=== PATIENT | male | born 1960 | race Caucasian/White ===

== ENCOUNTER 2017-02-08 09:00 | Day surgery (SDC) | payer OTHER ==
[2017-02-08] MEDS ORDERED: LACTATED RINGERS 1,000 ML IV ONE ×3 (09:05→13:47)
[2017-02-08] MEDS ORDERED: MIDAZOLAM 2 MG/2 ML VIAL IVP ONE (13:40)
[2017-02-08] MEDS ORDERED: KETOROLAC 30 MG/ML VIAL IVP ONE (13:40)
[2017-02-08] MEDS ORDERED: PROPOFOL 200 MG/20 ML VIAL IVP ONE (13:40)
[2017-02-08] MEDS ORDERED: ONDANSETRON 4 MG/2 ML VIAL IVP ONE (13:40)
[2017-02-08] MEDS ORDERED: ROCURONIUM 50 MG/5 ML VIAL IVP ONE (13:40)
[2017-02-08] MEDS ORDERED: LIDOCAINE-MPF 2% 5 ML VIAL IM ONE (13:40)
[2017-02-08] MEDS ORDERED: DEXAMETHASONE 4 MG/ML VIAL IVP ONE (13:40)
[2017-02-08] MEDS ORDERED: fentaNYL 250 MCG/5 ML VIAL IVP ONE (13:40)
[2017-02-08] MEDS ORDERED: ACETAMINOPHEN 1,000 MG/100 ML VIAL IV ONE (13:40)
[2017-02-08] MEDS ORDERED: SUCCINYLCHOLINE 200 MG/10 ML VIAL IVP ONE (13:40)
[2017-02-08] MEDS ORDERED: BUPIVACAINE 0.5% PF 10 ML VIAL IM ONE (13:47)
[2017-02-08] MEDS ORDERED: LIDOCAINE 1%-EPI 1:100000 20 ML MDV SUBQ ONE (13:48)
[2017-02-08] MEDS ORDERED: MEPERIDINE 50 MG/ML SYRINGE ONE (16:51)
[2017-02-08] MEDS: HYDROmorphone 1 MG/ML SYRINGE ONE ×3 (17:17→17:30)
[2017-02-08] MEDS ORDERED: fentaNYL 100 MCG/2 ML VIAL ONE (17:39)
[2017-02-08] MEDS ORDERED: oxyCOD/ACETAMIN 5 MG/325 MG TABLET PO ONE (18:16)
== END 2017-02-08 09:01 | disposition home or self-care (01) ==
PROC: 0YUA0JZ Supplement Bilateral Inguinal Region with Synthetic Substitute, Open Approach (ICD-10-PCS; 2017-02-08)
PROC: 0WUF0JZ Supplement Abdominal Wall with Synthetic Substitute, Open Approach (ICD-10-PCS; principal; 2017-02-08 10:00)
DX: K42.9 Umbilical hernia without obstruction or gangrene (principal); K40.91 Unilateral inguinal hernia, without obstruction or gangrene, recurrent; K40.90 Unilateral inguinal hernia, without obstruction or gangrene, not specified as recurrent; Z87.891 Personal history of nicotine dependence; Z80.3 Family history of malignant neoplasm of breast; Z80.51 Family history of malignant neoplasm of kidney; Z80.9 Family history of malignant neoplasm, unspecified
CPT/HCPCS: 49505; 49520; 49585; 88304; A9270; C1781; J0131; J1170; J3010; J7120

== ENCOUNTER 2021-08-22 13:31 | Emergency (ER) | payer OTHER ==
--- NOTE | 2021-08-22 14:10 | ED Physician Documentation ---
History of Present Illness - Stated complaint Stated Complaint: SOA,CONGESTION,WEAKNESS - Chief complaint Chief Complaint: General - History obtained from History obtained from: Patient - Additonal information Additional information: 61-year-old gentleman with history of irritable bowel syndrome and chronic issues with the left ankle from prior trauma but otherwise very healthy presents with 5 days of shortness of breath with exertion, feeling like his head is congested and he is feeling off balance. It was associated with "a feeling" in his chest last night that lasted about a minute but was not painful and he could not other describe saucedo describe it. He has some joint aches and generalized weakness with this. Had diarrhea on and off with an episode of bowel incontinence 2 days ago. No current abdominal pain, fevers, chills, pedal edema. Review of Systems Ten Systems: 10 systems reviewed and negative Constitutional: reports: Myalgias, Fatigue. denies: Fever, Chills, Weight Loss, Sweats Cardiac: denies: Chest pain / pressure, Palpitations, Pedal edema, Calf pain Respiratory: reports: Dyspnea. denies: Cough PD PAST MEDICAL HISTORY - Past Medical History Cardiovascular: None Respiratory: Sleep apnea Endocrine/Autoimmune: None GI: None : Benign prostate hypertrophy HEENT: None Psych: None Musculoskeletal: None Derm: None - Past Surgical History General: Colonoscopy, Other Ortho: Other - Present Medications Home Medications: Ambulatory Orders Medication Instructions Recorded Confirmed Tamsulosin [Flomax] 0.4 mg PO DAILY 02/07/17 02/07/17 - Allergies Allergies/Adverse Reactions: Allergies Allergy/AdvReac Type Severity Reaction Status Date / Time No Known Drug Allergies Allergy Verified 08/22/21 13:55 PD ED PE NORMAL - Vitals Vital signs reviewed: Yes - General General: Alert and oriented X 3, No acute distress - HEENT HEENT: PERRL, EOMI - Neck Neck: Supple, no meningeal sign, No bony TTP - Cardiac Cardiac: RRR, No murmur - Respiratory Respiratory: No respiratory distress, Clear bilaterally - Abdomen Abdomen: Non tender - Back Back: No CVA TTP, No spinal TTP - Derm Derm: Normal color, Warm and dry - Extremities Extremities: No edema, No calf tenderness / cord - Neuro Neuro: Alert and oriented X 3, No motor deficit, No sensory deficit, Normal speech, Other (Normal [id number] testing) Eye Opening: Spontaneous Motor: Obeys Commands Verbal: Oriented GCS Score: 15 Results - Vitals Vitals: Vital Signs - 24 hr 08/22/21 08/22/21 13:39 13:56 Temperature 36.5 C 36.5 C Heart Rate 60 60 Respiratory 15 15 Rate Blood Pressure 135/85 H 135/85 H O2 Saturation 99 99 Oxygen O2 Source Room air - EKG (time done) 1421 Rate: Rate (enter#) (60) Rhythm: NSR (w pvc) Landis: Normal Intervals: Other (IVCD) Ischemia: Normal ST segments - Labs Labs: Laboratory Tests 08/22/21 08/22/21 08/22/21 14:35 14:35 14:35 WBC 7.2 RBC 4.80 Hgb 14.8 Hct 43.0 MCV 89.6 MCH 30.8 MCHC 34.4 RDW 12.5 Plt Count 229 MPV 8.6 Neut # (Auto) 4.2 Lymph # (Auto) 1.9 [place] # (Auto) 0.7 Eos # (Auto) 0.3 Baso # (Auto) 0.1 Absolute Nucleated RBC 0.00 Nucleated RBC % 0.0 Sodium 139 Potassium 4.0 Chloride 107 Carbon Dioxide 22 Anion Gap 10.0 BUN 23 H Creatinine 0.8 Estimated GFR (MDRD) 99 Glucose 93 Calcium 9.6 Total Bilirubin 0.7 AST 36 ALT 74 H Alkaline Phosphatase 76 Troponin I High Sens 5.2 B-Natriuretic Peptide Total Protein 6.9 Albumin 4.4 Globulin 2.5 Albumin/Globulin Ratio 1.8 Lipase 33 08/22/21 14:35 WBC RBC Hgb Hct MCV MCH MCHC RDW Plt Count MPV Neut # (Auto) Lymph # (Auto) [place] # (Auto) Eos # (Auto) Baso # (Auto) Absolute Nucleated RBC Nucleated RBC % Sodium Potassium Chloride Carbon Dioxide Anion Gap BUN Creatinine Estimated GFR (MDRD) Glucose Calcium Total Bilirubin AST ALT Alkaline Phosphatase Troponin I High Sens B-Natriuretic Peptide 126 H Total Protein Albumin Globulin Albumin/Globulin Ratio Lipase PD MEDICAL DECISION MAKING - ED course ED course: 61-year-old gentleman with nonspecific symptoms. The most concerning which is exertional dyspnea. Nothing to suggest active ischemic heart disease. Chest x- ray negative save some atelectatic change. His symptoms do not point to Covid per se but he has a specific worry and requests Covid testing which will be done prior to discharge. Discussed need for follow-up and potentially stress testing. Departure - Departure Disposition: 01 Home, Self Care Clinical Impression: Dizziness Dyspnea Qualifiers: Dyspnea type: dyspnea on exertion Qualified Code(s): R06.00 - Dyspnea, unspecified Condition: Good Record reviewed to determine appropriate education?: Yes Instructions: ED Dyspnea Shortness of Breath Comments: No clear cause for your symptoms today, that said your blood work does not show any evidence of active issues or heart disease. You should follow-up with your doctor and I would recommend stress testing. Return for new or worsening symptoms or if you develop chest pain or discomfort. You have a Covid test pending. You need to self quarantine until the result is done and negative. Do not leave your house. Do not get near anybody. The results should be done in 48 to 72 hours. We will call with a positive result, the fastest way to get a negative result for confirmation though is to go to the hospital website at [email or web address], click on the my [facility] tab and sign up for the patient portal. If any friends or family get sick and would like to have a Covid test done, but do not have signs or symptoms that would necessitate being hospitalized, we encourage testing through our coronavirus swabbing station, call [phone] to schedule an appointment.
--- NOTE | 2021-08-22 14:33 | XRAY Report ---
PROCEDURE: Chest 1 View X-Ray INDICATIONS: Chest Pain TECHNIQUE: One view of the chest was acquired. COMPARISON: None. FINDINGS: Surgical changes and devices: None. Lungs and pleura: No pleural effusions or pneumothorax. Minimal streaky bibasilar opacities likely r epresenting atelectasis. Mediastinum: Mediastinal contours appear normal. Heart size is normal. Small focal density adjacent to the right perihilar region favored to represent perihilar vasculature seen on end. Bones and chest wall: No suspicious bony lesions. Overlying soft tissues appear unremarkable. IMPRESSION: Minimal streaky bibasilar opacities favored to represent atelectasis. No focal consolidations. Otherw ise, no acute cardiopulmonary abnormalities. Reviewed by: Shivam Hercules MD on 08/22/2021 2:32 PM PDT Approved by: Shivam Hercules MD on 08/22/2021 2:32 PM PDT Station ID: [id number]
[2021-08-22 14:44] LABS: BASOPHILS # (AUTO) 0.1 10^3/uL (0.0-0.1); EOSINOPHILS # (AUTO) 0.3 10^3/uL (0.0-0.7); EOSINOPHILS % (AUTO) 4.1 %; HGB - HEMOGLOBIN 14.8 g/dL (14.0-18.0); LYMPHOCYTES # (AUTO) 1.9 10^3/uL (1.5-3.5); LYMPHOCYTES % (AUTO) 26.8 %; MEAN CORPUSCULAR HEMOGLOBIN 30.8 pg (27.0-31.0); MEAN CORPUSCULAR HGB CONC 34.4 g/dL (32.0-36.0); MEAN CORPUSCULAR VOLUME 89.6 fL (80.0-94.0); MEAN PLATELET VOLUME 8.6 fL (7.4-11.4); MONOCYTES # (AUTO) 0.7 10^3/uL (0.0-1.0); MONOCYTES % (AUTO) 9.5 %; NEUTROPHILS # (AUTO) 4.2 10^3/uL (1.5-6.6); NEUTROPHILS % (AUTO) 58.2 %; PLT - PLATELET COUNT 229 10^3/uL (130-450); RED CELL DISTRIBUTION WIDTH 12.5 % (12.0-15.0); WHITE BLOOD COUNT 7.2 x10^3/uL (4.8-10.8)
[2021-08-22 15:02] LABS: ALBUMIN 4.4 g/dL (3.2-5.5); ALBUMIN/GLOBULIN RATIO 1.8 (1.0-2.2); BILIRUBIN,TOTAL 0.7 mg/dL (0.2-1.0); CALCIUM 9.6 mg/dL (8.5-10.3); CREATININE 0.8 mg/dL (0.6-1.2); TOTAL PROTEIN 6.9 g/dL (6.7-8.2)
[2021-08-22 15:25] VITALS: BP 134/88
== END 2021-08-22 15:23 | disposition home or self-care (01) ==
LOC: ED 13:31
DX: R06.09 Other forms of dyspnea (principal); Z20.822 Contact with and (suspected) exposure to COVID-19
CPT/HCPCS: 36415; 80053; 83690; 83880; 84484; 85025; 93005; 99283; 99284

== ENCOUNTER 2022-04-03 14:51 | Outpatient (CLI) | payer OTHER ==
--- NOTE | 2022-04-03 16:29 | MRI Report ---
PROCEDURE: Brain W/O INDICATIONS: MIGRAINE TECHNIQUE: Noncontrast axial T1 spin echo, axial T2 fast spin echo, sagittal and axial FLAIR, coronal T2 fast sp in echo, axial gradient echo, axial diffusion and ADC through the brain. COMPARISON: None. FINDINGS: Image quality: Excellent. CSF Spaces: Basal cisterns are patent. No extra-axial fluid collections. Ventricles are normal in size and shape. Brain: No intracranial masses or hemorrhage. Dennis/white matter interface is normal. Brainstem appe ars normal. Diffusion-weighted images demonstrate no acute ischemic insult. Mild diffuse cerebral v olume loss. Minimal degree of patchy high FLAIR signal within the periventricular and subcortical whi te matter. No chronic ischemic insults. Normal intravascular flow voids are present. Skull and face: Calvarium has normal marrow signal. Orbits appear normal. Sinuses: Mild mucosal thickening within the frontal, ethmoid, maxillary, and sphenoid sinuses. Sinus es and mastoids are otherwise clear. IMPRESSION: 1. No acute intracranial abnormality. No recent infarct. 2. Sinus disease. 3. Volume loss and minimal small vessel ischemic disease. Reviewed by: Nikia Bliss MD on 04/03/2022 4:28 PM PDT Approved by: Nikia Bliss MD on 04/03/2022 4:28 PM PDT Station ID: [id number]
== END 2022-04-03 14:52 | disposition home or self-care (01) ==
LOC: DI 14:51
PROVIDERS: ATTEND Physician Assistant
DX: G43.109 Migraine with aura, not intractable, without status migrainosus (principal); J32.1 Chronic frontal sinusitis; J32.2 Chronic ethmoidal sinusitis; J32.0 Chronic maxillary sinusitis; G31.89 Other specified degenerative diseases of nervous system; I67.82 Cerebral ischemia